=== PATIENT | female | born 1965 | race Caucasian/White ===

== ENCOUNTER 2023-02-05 16:01 | Emergency (ER) | payer OTHER ==
[~2023-02-05] VITALS: Ht 157.5 cm; Wt 111.1 kg
[2023-02-05 16:39] VITALS: O2SAT 100
== END 2023-02-05 17:07 | disposition home or self-care (01) ==
LOC: ER 16:13
DX: K52.1 Toxic gastroenteritis and colitis (principal); R10.9 Unspecified abdominal pain; I10 Essential (primary) hypertension; E11.9 Type 2 diabetes mellitus without complications
CPT/HCPCS: 99282

== ENCOUNTER 2025-06-06 13:55 | Emergency (ER) | payer SELFPAY ==
[~2025-06-06] VITALS: Ht 157.5 cm; Wt 113.4 kg
[~2025-06-06 13:55] MED LIST: AMLODIPINE BESY10 MG PO; ASPIRIN81 MG PO; FERROUS SULFAT325 MG PO; METFORMIN HCL500 M2 PO; OMEGA 3 1,0001 EACH PO; PANTOPRAZOLE SO20 MG PO; SIMVASTATIN20 MG PO; TRICOR145 MG PO; b12 IM; vitamin d
[2025-06-06 14:07] VITALS: PULSE 89; RESP 16; TEMP 97.7; O2SAT 99
[2025-06-06] MEDS: ACETAMINOPHEN 325 MG TAB PO ONE (16:18)
== END 2025-06-06 16:20 | disposition home or self-care (01) ==
LOC: ER 13:57
DX: S60.212A Contusion of left wrist, initial encounter (principal); S80.02XA Contusion of left knee, initial encounter; W01.0XXA Fall on same level from slipping, tripping and stumbling without subsequent striking against object, initial encounter; Y93.01 Activity, walking, marching and hiking; Y92.89 Other specified places as the place of occurrence of the external cause; I10 Essential (primary) hypertension; E11.9 Type 2 diabetes mellitus without complications; E78.5 Hyperlipidemia, unspecified; D64.9 Anemia, unspecified; F32.A Depression, unspecified
CPT/HCPCS: 99283